=== PATIENT | female | born 1940 ===

== ENCOUNTER 2017-03-13 05:37 | Day surgery (SDC) | payer MEDICARE, MEDICAID ==
--- NOTE | 2017-03-09 09:01 | Pre-Procedure Note/Attestation ---
Pre-Procedure Note/Attestation Complete Prior to Procedure Planned Procedure: left Procedure Narrative: 1- Secondary IOL implant, left eye. Indications for Procedure Pre-Operative Diagnosis: 1-IOL mechanical breakdown left eye. Attestation I attest that I discussed the nature of the procedure; its benefits; risks and complications; and alternatives (and the risks and benefits of such alternatives ), prior to the procedure, with the patient (or the patient's legal printing supplies sales representative). I attest that, if there was a reasonable possibility of needing a blood transfusion, the patient (or the patient's legal printing supplies sales representative) was given the [facility] standardized written summary, pursuant to the Elvin Martina Blood Safety Act ([place] Health and Safety Code # 1645, as amended). I attest that I re-evaluated the patient just prior to the surgery and that there has been no change in the patient's H&P, except as documented below: DANDRE JOHNSON Mar 09, 2017 09:01
[2017-03-13] VITALS (9 sets, daily range): BP systolic 113–126; BP diastolic 68–84
[~2017-03-13] VITALS: Ht 160 cm; Wt 54.0 kg
[2017-03-13] MEDS ORDERED: Gatifloxacin Opth Solution 0.5% LEFT EYE SCH (06:00)
[2017-03-13] MEDS ORDERED: Dexamethasone 4mg/ml vial ONE (07:04)
[2017-03-13] MEDS ORDERED: Lidocaine 1% MPF 10mg/ml 5ml ONE (07:04)
[2017-03-13] MEDS ORDERED: BSS 500ml btl ONE (07:04)
[2017-03-13] MEDS ORDERED: Povidone-Iodine 5% opth solution ONE (07:05)
[2017-03-13] MEDS ORDERED: EPINEPHrine 1mg/1ml Amp ONE (07:05)
[2017-03-13] MEDS ORDERED: BSS 15ml BTL ONE (07:05)
[2017-03-13] MEDS ORDERED: Sodium Hyaluronate 10 mg/ml 0.85ml ONE (07:05)
[2017-03-13] MEDS ORDERED: Phenylephrine 10% Opth Soln 5ml ONE (07:25)
[2017-03-13] MEDS ORDERED: Tropicamide 1% Opth Soln ONE (07:26)
[2017-03-13] MEDS ORDERED: Tetracaine 0.5% Opth Soln ONE (07:26)
[2017-03-13] MEDS ORDERED: Diclofenac Sod 0.1% Op Soln ONE (07:26)
[2017-03-13] MEDS ORDERED: Vigamox Opth Soln ONE (07:28)
[2017-03-13] MEDS: Tropicamide 1% Opth Soln LEFT EYE SCH ×3 (07:34→08:09)
[2017-03-13] MEDS: Diclofenac Sod 0.1% Op Soln LEFT EYE SCH ×3 (07:34→08:09)
[2017-03-13] MEDS: Phenylephrine 10% Opth Soln 5ml LEFT EYE SCH ×3 (07:35→08:10)
[2017-03-13] MEDS: Tetracaine 0.5% Opth Soln LEFT EYE SCH ×3 (07:36→08:10)
[2017-03-13] MEDS: Vigamox Opth Soln LEFT EYE SCH ×3 (07:36→08:10)
[2017-03-13] MEDS ORDERED: CRESTOR10 M1 ORAL (07:48)
[2017-03-13] MEDS ORDERED: [UNRECOGNIZED DRUG - OTHER] PO (07:48)
[2017-03-13] MEDS ORDERED: Propofol 10mg/ml 20ml IV ONE (08:00)
[2017-03-13] MEDS ORDERED: LR 1000ml ONE (08:00)
[2017-03-13] MEDS ORDERED: Midazolam 2mg/2ml Inj ONE (08:00)
[2017-03-13 08:06] LABS: BASOPHILS % (AUTO) 1.4 % (0.0-2.0); EOSINOPHILS % (AUTO) 1.9 % (0.0-3.0); LYMPHOCYTES % (AUTO) 30.2 % (20.0-45.0); MEAN CORPUSCULAR HEMOGLOBIN 29.5 PG (27.0-31.0); MEAN CORPUSCULAR HGB CONC 33.5 G/DL (32.0-36.0); MEAN CORPUSCULAR VOLUME 88 FL (80-99); MEAN PLATELET VOLUME 7.4 FL (6.5-10.1); MONOCYTES % (AUTO) 6.9 % (1.0-10.0); NEUTROPHILS % (AUTO) 59.7 % (45.0-75.0); PLATELET COUNT 263 K/UL (150-450); RED BLOOD COUNT 3.91 M/UL (4.20-5.40); RED CELL DISTRIBUTION WIDTH 11.5 % (11.6-14.8); WHITE BLOOD COUNT 4.1 K/UL (4.8-10.8)
[2017-03-13 08:28] LABS: ANION GAP 12 (5-15); CALCIUM 9.8 mg/dL (8.6-10.2); CARBON DIOXIDE 27 mEQ/L (20-30); CHLORIDE 100 mEQ/L (98-107); CREATININE 0.6 mg/dL (0.5-0.9); HEMOLYSIS 21; POTASSIUM 4.3 mEQ/L (3.4-4.9); SODIUM 139 mEQ/L (135-145)
[2017-03-13] MEDS ORDERED: acetaZOLAMIDE 125mg tab ORAL ONE (08:30)
[2017-03-13] MEDS ORDERED: LR 1000ml 1,000 ML IVLG SCH (08:42)
[2017-03-13] MEDS ORDERED: fentaNYL 100 mcg/2 mL IV PRN (08:45)
--- NOTE | 2017-03-13 08:45 | Anethesia Preoperative Eval ---
Anesthesia Pre-op PMH/ROS General Date of Evaluation: Mar 13, 2017 Time of Evaluation: 08:16 Anesthesiologist: Channing ASA Score: ASA 3 Mallampati Score Class I : Soft palate, uvula, fauces, pillars visible Class II: Soft palate, uvula, fauces visible Class III: Soft palate, base of uvula visible Class IV: Only hard plate visible Mallampati Classification: Class II Surgeon: Rex Diagnosis: Lens breakdown left eye Surgical Procedure: Lens implant Allergies: Coded Allergies: No Known Allergies (Unverified , 03/09/17) Past Medical History Cardiovascular: Denies: CAD, HTN, [place], arrhythmia, other, valve dz Pulmonary: Denies: COPD, DEZ, asthma, other Gastrointestinal/Genitourinary: Denies: CRI, ESRD, GERD, other Neurologic/Psychiatric: Denies: CVA, TIA, dementia, depression/anxiety, other Endocrine: Reports: DM, Denies: hypothyroidism, other, steroids HEENT: Reports: cataract (L), cataract (R) Hematology/Immune: Denies: DVT, anemia, bleeding disorder, other Musculoskeletal/Integumentary: Denies: DDD, DJD, OA, RA, edema, other PMH Narrative: DM, hypercholesterolemia PSxH Narrative: Cataract Anesthesia Pre-op Phys. Exam Physician Exam Last Vital Signs Date Time Temp Pulse Resp B/P Pulse Ox O2 Delivery O2 Flow Rate FiO2 03/13/17 07:49 97.2 70 20 113/69 97 Room Air Constitutional: NAD Neurologic: CN 2-12 intact Cardiovascular: RRR, no M/R/G Respiratory: CTA Gastrointestinal: S/NT/ND Airway Exam Mallampati Score: Class II MO: full ROM: full Teeth: intact Anesthesia Pre-op A/P Labs Hematology Test 03/13/17 07:50 White Blood Count 4.1 K/UL (4.8-10.8) L Red Blood Count 3.91 M/UL (4.20-5.40) L Hemoglobin 11.5 G/DL (12.0-16.0) L Hematocrit 34.4 % (37.0-47.0) L Mean Corpuscular Volume 88 FL (80-99) Mean Corpuscular Hemoglobin 29.5 PG (27.0-31.0) Mean Corpuscular Hemoglobin Concent 33.5 G/DL (32.0-36.0) Red Cell Distribution Width 11.5 % (11.6-14.8) L Platelet Count 263 K/UL (150-450) Mean Platelet Volume 7.4 FL (6.5-10.1) Neutrophils (%) (Auto) 59.7 % (45.0-75.0) Lymphocytes (%) (Auto) 30.2 % (20.0-45.0) Monocytes (%) (Auto) 6.9 % (1.0-10.0) Eosinophils (%) (Auto) 1.9 % (0.0-3.0) Basophils (%) (Auto) 1.4 % (0.0-2.0) Chemistry Test 03/13/17 07:50 Sodium Level 139 mEQ/L (135-145) Potassium Level 4.3 mEQ/L (3.4-4.9) Chloride Level 100 mEQ/L (98-107) Carbon Dioxide Level 27 mEQ/L (20-30) Anion Gap 12 (5-15) Blood Urea Nitrogen 9 mg/dL (7-23) Creatinine 0.6 mg/dL (0.5-0.9) Estimat Glomerular Filtration Rate mL/min (>60) Glucose Level 117 mg/dL (74-106) H Calcium Level 9.8 mg/dL (8.6-10.2) Risk Assessment & Plan Assessment: Diabetic female for lens implant left eye Plan: MAC, TIVA Status Change Before Surgery: No Pre-Antibiotics Drug: None FLOYD TORRE M.D. Mar 13, 2017 08:45
--- NOTE | 2017-03-13 08:46 | Immediate Post-Op Evaluation ---
Immediate Post-Op Evalulation Immediate Post-Op Evalulation Procedure: Lens implant left eye Date of Evaluation: Mar 13, 2017 Time of Evaluation: 09:32 IV Fluids: 600 Blood Pressure Systolic: 125 Blood Pressure Diastolic: 81 Pulse Rate: 82 Respiratory Rate: 18 O2 Sat by Pulse Oximetry: 99 Temperature (Fahrenheit): 97.7 Pain Score (1-10): 0 Nausea: No Vomiting: No Complications No complication Patient Status: awake, patent, none Hydration Status: adequate Drug: None FLOYD TORRE M.D. Mar 13, 2017 08:46
[2017-03-13] MEDS ORDERED: Triamcinolone 40mg/ml PF Vial ONE (08:56)
[2017-03-13] MEDS ORDERED: Carbachol 0.01% Op Soln 1.5ml vial ONE (09:03)
--- NOTE | 2017-03-13 09:22 | Discharge Summary ---
Discharge Summary Discharge Summary Discharge Summary DATE OF ADMISSION: 03/13/2017 DATE OF DISCHARGE: 03/13/2017 REASON FOR HOSPITALIZATION:IOL mechanical breackdown SURGERY PERFORMED: 1- Anterior synechiotomy 2- Anterior vitrectomy 3- IoL implantation secondary CONDITION IN THE HOSPITAL:The patient tolerated the surgery without complications. DISCHARGE CONDITION: The patient was stable at discharge. DISCHARGE MEDICATIONS: 1. Vigamox eye drops one drop q.i.d, left eye 2. Prednisolone one drop q.i.d, left eye 3. Acular one drop q4h, left eye POSTOPERATIVE ORDERS: The patient has to rest at home. No bending, No lifting, No watching Television tonight. POSTOPERATIVE FOLLOW UP: The patient will be followed in my office tomorrow morning at 7 o'clock. DANDRE JOHNSON Mar 13, 2017 09:21
--- NOTE | 2017-03-13 09:24 | 48 Hour Post Anesthesia Eval ---
Post Anesthesia Evaluation Procedure: Lens implant left eye Date of Evaluation: Mar 13, 2017 Time of Evaluation: 10:00 Blood Pressure Systolic: 132 0: 81 Pulse Rate: 93 Respiratory Rate: 16 O2 Sat by Pulse Oximetry: 99 Airway: patent Nausea: No Vomiting: No Pain Intensity: 0 Hydration Status: adequate Cardiopulmonary Status: Stable Mental Status/LOC: patient returned to baseline Follow-up Care/Observations: As per surgery Post-Anesthesia Complications: No anesthetic complication Follow-up care needed: N/A FLOYD TORRE M.D. Mar 13, 2017 09:24
--- NOTE | 2017-03-13 09:26 | Brief Operative Note ---
Immediate Post Operative Note Operative Note Chief Complaint: Blurry vision, difficulty driving and reading, left eye Pre-op Diagnosis: 1-IOL mechanical breakdown left eye. Procedure: 1- Anterior synechiotomy, left eye 2- Anterior vitrectomy, left eye 3- Secondary IOL implanted, left eye Post-op Diagnosis: same as pre-op plus - 1- Anterior synechia 2- vitreous prolaps in the anterior chamber Surgeon: Dandre Goodman MD. Lap Winder: None Additional Surgeons: None Anesthesiologist: Dr. Colón Anesthesia: MAC Specimen: none Complications: none Condition: stable Estimated Blood Loss: none Drains: none Implant(s) used?: Yes - Piggyback IOL implanted in the left eye DANDRE GOODMAN Mar 13, 2017 09:26
--- NOTE | 2017-03-13 09:30 | Pre-op HX & Phy Repo 2 SIG ---
DATE OF ADMISSION: 03/13/2017 REASON FOR EVALUATION: I was asked by Dr. Aj Goodman to see this 76-year-old female, who is going for elective surgery on the left eye. The patient has intraocular lens mechanical break down in the left eye. Please see full History and Physical by Dr. Aj Goodman. The patient was evaluated. Chart was reviewed. PAST MEDICAL HISTORY: Remarkable for type 2 diabetes and hyperlipidemia. Denies history of hypertension, no stroke or seizures. Denies history of migraines. No heart attack. No chest pain or palpitations. Denies history of respiratory problem. No history of abdominal pain or gastritis. No ulcer disease. No heart burn. Denies history of hepatitis. No renal failure. No history of thyroid problem. No anemia. PAST SURGICAL HISTORY: Left eye surgery for cataracts. ALLERGIES: Not known. PRESENT MEDICATIONS: Include , Crestor, vitamin D, and multivitamins. FAMILY HISTORY: Mother from kidney cancer and father from heart attack. HABITS: Denies history of smoke or alcohol habits. No street drugs. PHYSICAL EXAMINATION: GENERAL: Alert, well-developed, well-nourished female in her 70s. VITAL SIGNS: Blood pressure 113/69, temperature 97.7, heart rate 66 and regular, respirations 20 per minute, and O2 saturation 97% on room air. The patient's sister is at bedside to help with history. SKIN: Dry, clear, and warm. No rashes. No open ulcers. LYMPHATICS: Lymph nodes not enlarged. HEENT: Head: Normocephalic and atraumatic. Ears, clear. Eyes, full description per Dr. Aj Goodman. Mouth, clear and moist. No discharge or ulcers. No dentures. NECK: Supple. No jugular vein distention. Carotids artery +2. Trachea midline. CHEST: No deformity or asymmetry. LUNGS: Clear. Auscultation percussion. No rales or rhonchi. HEART: Sinus rhythm. No ectopy. No murmur. No S3 or S4. ABDOMEN: Soft, benign. Liver and spleen not enlarged. No rebound. EXTREMITIES: No deformity or edema. No varicose veins or calf tenderness. GENITOURINARY TRACT: CVA nontender. No dysuria. NEUROLOGIC: No tremor. No nystagmus. No asymmetry. LABORATORY AND DIAGNOSTIC DATA: ECG normal sinus rhythm, 66 per minute. Normal ECG. Follow up blood sugar 112 mg/dL. The patient did not eat or drink from last night. IMPRESSION: 1. Intraocular lens mechanical break down, left eye. 2. Type 2 diabetes mellitus. 3. Hyperlipidemia. PLAN: Second intraocular lens implant, left eye per Dr. Aj Goodman. CONCLUSION: The patient's vital signs stable. EKG is normal. Blood sugar control. The patient did not eat or drink from last night. The patient's condition optimized for surgery. Thank you very much, Dr. Goodman, for privilege to participate presurgical care of this interesting patient. Dean Raman M.D. DR: CARLOS JOB#: [id number] CC:
[2017-03-13] MEDS ORDERED: LR 1000ml 1,000 ML IV SCH (10:42)
--- NOTE | 2017-03-13 17:30 | Operative Note - Dictated ---
DATE OF OPERATION: 03/13/2017 FACILITY: [facility]. SURGEON: Aj Goodman M.D. SENIOR TALENT MANAGEMENT CONSULTANT: None. ANESTHESIOLOGIST: Elvin Snell M.D. ANESTHESIA: Monitored anesthesia care (MAC) x2. PREOPERATIVE DIAGNOSES: 1. Anterior synechiae. 2. Vitreous prolapse. 3. IOL mechanical breakdown. POSTOPERATIVE DIAGNOSES: 1. Anterior synechiae. 2. Vitreous prolapse. 3. IOL mechanical breakdown. SURGERY PERFORMED: 1. Anterior synechiotomy. 2. Anterior vitrectomy. 3. Insertion of a secondary IOL as a IOL. INDICATION FOR SURGERY: The patient is a 76-year-old lady with history of hypertension, hypercholesterolemia, and diabetes. She is taking Crestor, Diovan, and . She is complaining of blurry vision in the left eye too. 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 She had a LASIK surgery on the left eye as well, but still vision is not good. On examination of the left eye, the cornea is clear, anterior chamber did reveal some vitreous jelly from the anterior chamber and eyelids infused to the capsular bag and IOL. Funduscopy shows normal optic disc, normal macula, and normal periphery retina. The IOL was replaced towards the temporal side because of vitreous loss. To improve her vision, all these pathology findings had to be removed. INFORMED CONSENT: The nature of the surgery, risks, benefits, alternatives, and potential complications were explained all in detail to the patient. The potential complications including, but not limited to bleeding, infection, posterior capsular rupture, lens subluxation, flat anterior chamber, iris prolapse, uveitis, corneal edema, macular edema, endophthalmitis, retinal detachment, loss of vision, and even loss of the eye were all explained in detail to the patient. The patient voiced understanding and accepted all the complications. There is no alternative for this surgery because they had to perform the surgery and correct the pathology. DESCRIPTION OF SURGERY AND FINDINGS: Following that, the patient was taken to the operation room in a stable condition. Lidocaine gel Akten 3.5% was applied to the conjunctiva of the left eye. IV sedation was given by the anesthesiologist, Dr. Snell. After adequate anesthesia and sedation had been achieved, then the left eye was prepped and draped in a sterile fashion for intraocular surgery. Following that, a speculum was placed in the left eye. Following that, 1% lidocaine without preservative was injected into the anterior chamber. Following that, viscoelastic agent was injected into the anterior chamber. Following that, with a 2.8 mm keratome, a clear corneal temporal keratotomy was performed. Following that, anterior synechiotomy was performed. Following that, an automated residual anterior vitrectomy was performed. Following that, the viscoelastic agent was injected into the anterior chamber again. Following that, a +2 diopter with serial number [id number] was injected into the posterior chamber. On the lens, the haptics of the lens was placed in the carefully. Following that, viscoelastic agent was removed from the anterior and posterior part of the lens. Following that, again anterior vitrectomy was performed. Following that, the anterior chamber was filled with balanced salt solution. Following that, a 10-0 nylon stitch was put on the main incision because of leakage. Following that, 5 mg betamethasone was injected sub-tenon. Before the wound was closed, Miostat was injected into the anterior chamber to hold the IOL back. At the end of the surgery, Vigamox eye drops were applied to conjunctiva. The patient tolerated the surgery. The eye was patched with a clear sterile eye patch. Following that, the patient was transferred to the recovery room. In the recovery room, 125 mg Diamox was given by mouth stat. Postoperative orders and directions were given to the patient. The patient will be discharged home upon stabilization. The patient will be followed in my office tomorrow morning at 7 a.m. Aj Goodman M.D. DR: AILYN JOB#: [id number] CC:
== END 2017-03-13 10:50 | disposition home or self-care (01) ==
LOC: SUR 05:37
DX: T85.21XA Breakdown (mechanical) of intraocular lens, initial encounter (principal); H21.512 Anterior synechiae (iris), left eye; H43.02 Vitreous prolapse, left eye; Y83.8 Other surgical procedures as the cause of abnormal reaction of the patient, or of later complication, without mention of misadventure at the time of the procedure; Y92.009 Unspecified place in unspecified non-institutional (private) residence as the place of occurrence of the external cause; I10 Essential (primary) hypertension; E11.9 Type 2 diabetes mellitus without complications; E78.5 Hyperlipidemia, unspecified
CPT/HCPCS: 36415; 66985; 67005; 80048; 82962; 85025; J0171; J1100; J2250; J2704; J3010; J3300; J7120; V2632; 94003; 94150